=== PATIENT | male | born 1980 | race Caucasian/White ===

== ENCOUNTER 2020-07-13 20:10 | Emergency (ER) | payer SELFPAY ==
[~2020-07-13] VITALS: Ht 180.3 cm; Wt 90.9 kg
[2020-07-13 21:11] VITALS: BP 112/82
== END 2020-07-13 21:13 ==
LOC: ER 20:10
DX: Z00.8 Encounter for other general examination (principal); Z72.89 Other problems related to lifestyle; V89.2XXA Person injured in unspecified motor-vehicle accident, traffic, initial encounter; Y93.89 Activity, other specified; Y92.89 Other specified places as the place of occurrence of the external cause; Y99.8 Other external cause status
CPT/HCPCS: 99283